=== PATIENT | male | born 1955 | race Caucasian/White ===

== ENCOUNTER 2025-02-11 14:29 | Emergency (ER) | payer OTHER, SELFPAY ==
[2025-02-11 14:31] VITALS: BP 173/107
[2025-02-11 15:08] LABS: % Basophils 0.3 % (0-2); % Eosinophils 0.6 % (0-6); % Immature Granulocytes 0.4 % (0-0.5); % Monocytes 6.5 % (1.7-9.3); % Neutrophils 72.2 % (42.2-75.2); Absolute Eosinophils 0.1 10^3/uL (0-0.7); Absolute Lymphocytes 1.8 10^3/uL (1.2-3.4); Absolute Monocytes 0.6 10^3/uL (0.1-0.6); Absolute Neutrophils 6.6 10^3/uL (1.4-6.5); Hematocrit 42.9 % (39.0-52.0); Mean Corpuscular Hgb 31.9 pg (27.0-31.0); Mean Corpuscular Volume 91.3 fL (80.0-94.0); Mean Platelet Volume 10.8 fL (7.4-10.4); Nucleated Red Blood Cells % 0 % (-); Platelet Count 207 10^3/uL (130-400); White Blood Cell Count 9.1 10^3/uL (4.8-10.8)
[2025-02-11 15:09] LABS: ALT (SGPT) 29 U/L (0-50); AST (SGOT) 30 U/L (17-59); Albumin 5.1 g/dl (3.5-5.0); Alkaline Phosphatase 67 U/L (38-126); Blood Urea Nitrogen 21 mg/dl (9-20); Calcium 9.8 mg/dl (8.4-10.2); Carbon Dioxide 28 mmol/L (22-30); Chloride 102 mmol/L (98-107); Glucose 112 mg/dl (70-99); Potassium 4.5 mmol/L (3.5-5.1); Sodium 139 mmol/L (135-145); Total Bilirubin 0.9 mg/dl (0.2-1.3); Total Protein 8.6 g/dl (6.3-8.2); eGFR > 60.00
[2025-02-11 15:14] LABS: Urine Albumin 4+ (Neg - Trace); Urine Bilirubin Negative (Negative); Urine Character Cloudy (Clear); Urine Color Red; Urine Glucose Negative (Negative); Urine Ketone 1+ (Negative); Urine Leukocyte 2+ (Negative); Urine Nitrite Negative (Negative); Urine Occult Blood 4+ (Negative); Urine Urobilinogen Negative (Neg - 1+)
[2025-02-11 15:52] LABS: Urine Red Blood Cell >100 /HPF (0-2); Urine Squamous Cell 0-2 /LPF (Few)
[2025-02-11 15:53] LABS: Urine Bacteria Few (Negative); Urine White Cell 0-2 /HPF (0-5)
--- NOTE | 2025-02-11 18:31 | ED.GENMED ---
History of Present Illness
General
Chief Complaint: Urinary Symptoms
Source: patient
Exam Limitations: none
Time Seen by Provider: 02/11/25 17:40
History of Present Illness
History of Present Illness:
See MDM
Past History
Past History
ED Past Medical History: Other (Bladder stones)
ED Past Surgical History: None
Social History
Tobacco: Non-smoker
Alcohol: None
Phy Exam
Physical Exam
Physical Exam:
See MDM
Course
Orders/Labs/Results
Orders:
Orders
02/11/25 14:38
Complete Blood Count/With Diff Urgent
Comprehensive Metabolic Panel Urgent
Urinalysis Reflex To Culture Urgent
Date Specimen was Collected: 02/11/25
Time Specimen was Collected: 14:34
Urine Microscopic Reflex Cult Urgent
Urine Culture Urgent
MIREYA Source: U
Specimen Description:
Date Specimen was Collected: 02/11/25
Time Specimen was Collected: 14:34
02/11/25 18:30
CT Abd/pel Without Iv Or Oral Urgent
Comment: hx bladder stones
Reason For Exam: hematuria
Phenazopyridine HCl [Pyridium] 100 mg PO NOW STA
02/11/25 21:31
Catheter [Kaplan Placement- Treatment] ONCE
Reason for insertion: Acute Retention
Abnormal Lab Results
02/11/25
14:38
MCH 31.9 H pg
(27.0-31.0)
MPV 10.8 H fL
(7.4-10.4)
Absolute Neuts (auto) 6.6 H 10^3/uL
(1.4-6.5)
Lymphocytes % 20.0 L %
(20.5-51.1)
BUN 21 H mg/dl
(9-20)
Glucose 112 H mg/dl
(70-99)
Total Protein 8.6 H g/dl
(6.3-8.2)
Albumin 5.1 H g/dl
(3.5-5.0)
Urine Ketones 1+ A
(Negative)
Ur Occult Blood Reflex 4+ A
(Negative)
Leukocyte Esterase Rfl 2+ A
(Negative)
Urine RBC >100 A /HPF
(0-2)
Urine Bacteria (Reflex) Few A
(Negative)
Urine Albumin (Reflex) 4+ A
(Neg - Trace)
02/11/25 14:38
02/11/25 14:38
Vital Signs
Initial and Last Documented VS:
Initial Vital Signs
Temp Pulse Resp BP Pulse Ox
98.1 F 88 16 173/107 96
02/11/25 14:31 02/11/25 14:31 02/11/25 14:31 02/11/25 14:31 02/11/25 14:31
Last Documented Vital Signs
Temp Pulse Resp BP Pulse Ox
98.4 F 67 16 154/70 98
02/11/25 21:11 02/11/25 21:11 02/11/25 21:11 02/11/25 21:11 02/11/25 21:11
MDM/Problems Addressed
Differential Diagnosis Includes:
HPI and MDM Narrative:
69-year-old male presenting for evaluation of hematuria. Patient states he believes this is related to his known bladder stones. Patient states he has had bladder stone for years and his urologist wanted to remove them. Since they did not bother
him too much, patient declined having them removed. He states he intermittently deals with hematuria that appears to improve with Keflex. His PCP ordered him Keflex and he took his first dose today. States he has increased urinary frequency.
Blood work and urinalysis done prior to my assessment. Labs without significant abnormalities. Urinalysis shows hematuria but no evidence to suspect infection. Given his ongoing symptoms, will give dose of Pyridium will obtain CT to evaluate for
his bladder stone
Physical exam
General: Well appearing and non-toxic
HEENT: protecting airway
Neck: appears supple
CV: No evidence of cyanosis
Resp: No accessory muscle use
Abd: Non-distended. Soft and nontender
Extremities: No deformities
Neuro: alert
Psych: Normal affect
Skin: Intact
Problems Addressed including Acute and Chronic Conditions affecting care:
1. Hematuria
Acuity: acute
Prognosis: stable
Details: Likely in setting of his bladder stones. Urine negative for nitrites or white blood cell
Updates
CT confirms multiple bladder stones. Patient states he has urinated 40+ times while here in the emergency department. There is concern that the one of the stones is obstructing the flow of urine. Will place Kaplan catheter and discussed follow-up
with urology. Discussed finishing the course of antibiotics prescribed by PCP
Differential Diagnosis (but not limited to): Bladder stones, bladder cancer, UTI, hemorrhagic cystitis
Testing considered: CT abdomen pelvis with IV contrast
Drug therapy (if applicable): OTC meds, please see d/c instruction regarding Rx drugs
Amount and/or Complexity of Data Reviewed
Clinical info obtained from: Patient
External data reviewed: N/A
Labs I independently reviewed (but not limited to): White blood cell count normal, creatinine normal
Radiology: The CT scan was personally and independently reviewed. In addition, official CT report reviewed.
Pulse Ox: not hypoxic
EKG independently reviewed: N/A
[employer] Person: N/A
Critical Care: N/A
Risk of Complication:
Social Determinants of health: Good social support
Discussed with other providers: N/A
Escalation of Care includes Admit/Obs: After being observed in the Emergency Department, pt stable for discharge.
Occasional wrong word or 'sound a like' substitutions may have occurred due to the inherent limitations of voice recognition software. Read the chart carefully and recognize, using context, where substitutions have occurred.
*Critical Care Note
Total Time (30-74mins, 75-104mins- exclusive of procedures): Not Applicable
ED Attending Note
-
Portions of this chart may have been created with voice recognition software.� Occasional wrong word or��sound alike� substitutions may have occurred due to the inherent limitations of voice recognition software.
Discharge Plan
Departure
Patient Disposition: Home (Routine Discharge)
Date of Disposition: 02/11/25
Time of Disposition: 21:32
Patient with high blood pressure during this ER visit?: Yes
Discharge Problem:
Bladder stones
Instructions: How to Care for Your Kaplan Catheter, Male
Referrals:
Gabo Mcmahon MD [Family Provider] -
Dat Jimenez MD [Active] -
Activity Restrictions/Additional Instructions:
Please return for any worsening symptoms.
You may return at any time if you have further concerns.
Please follow up with the urologist at the first available appointment, preferably this week.
Thank you for choosing [facility].
Interventions
Interventions:
*Risk Screen - Suicide Last Done: 02/11/25 14:34
*General Assessment Last Done: 02/11/25 18:49
*Neglect/Abuse Screening Last Done: 02/11/25 14:34
*ED- Fall Risk Assessment Last Done: 02/11/25 18:49
*ED COVID-19 Vaccine History Last Done: 02/11/25 18:49
ED-Male Genitourinary Assessment Last Done: 02/11/25 18:49
Discharge Date and Time
Print Language: SYRIAC
[2025-02-11 18:49] VITALS: BMI 35.7
[2025-02-11] MEDS: Pyridium 100 MG PO (18:56)
[2025-02-11 18:58] VITALS: BP 168/72
[2025-02-11 21:11] VITALS: BP 154/70
--- NOTE | 2025-02-11 22:00 | EDRN ---
Bowman placed by Dr Weber's orders. Pt to go home with catheter and followup with urology.
After catheter placed, pt asked how long I was going to keep it in for. I told him he needed to followup with urology this week and remove it.
Pt reports he does not want to go home with the catheter, just wanted his bladder drained before he left.
After bowman placed 15mL of urine drained. Bladder scan after showed 0 in bladder. Pt requesting it to be removed so catheter removed and pt to followup with urology.
== END 2025-02-11 22:02 | disposition home or self-care (01) ==
LOC: EMR 14:29
PROVIDERS: Emergency Medicine; EMERGENCY PHYSICIAN Student in an Organized Health Care Education/Training Program; FAMILY PHYSICIAN Internal Medicine
DX: N21.0 Calculus in bladder (principal); R31.9 Hematuria, unspecified; N40.1 Benign prostatic hyperplasia with lower urinary tract symptoms; Z87.442 Personal history of urinary calculi
CPT/HCPCS: 99284; 74176; 80053; 81003; 81015; 85025; 87086